=== PATIENT | male | born 1995 | race Caucasian/White ===

== ENCOUNTER 2023-02-04 18:01 | Emergency (ER) | payer OTHER ==
[~2023-02-04] VITALS: Ht 182.9 cm; Wt 84.5 kg
[2023-02-04 18:02] VITALS: BP 137/76; PULSE 83; RESP 16; TEMP 98; O2SAT 95
== END 2023-02-04 18:22 | disposition home or self-care (01) ==
LOC: ER 18:03
DX: S01.511D Laceration without foreign body of lip, subsequent encounter (principal); Z48.02 Encounter for removal of sutures; X58.XXXD Exposure to other specified factors, subsequent encounter
CPT/HCPCS: 99281